=== PATIENT | female | born 1955 | race Caucasian/White ===

== ENCOUNTER 2020-07-23 13:48 | Outpatient (REF) | payer BC, SELFPAY ==
--- NOTE | 2020-07-23 | MM_ITS ---
EXAMINATION: MM SCREENING DIGITAL BREAST TOMOSYNTHESIS, BILATERAL CLINICAL INFORMATION: Screening. Asymptomatic. The lifetime risk of breast cancer based on the Tyrer-Cuzick Model is 10%. COMPARISON: Mammography: 07/06/2019, 04/21/2018 TECHNIQUE: Digital breast tomosynthesis is performed in both the craniocaudal and mediolateral oblique views along with computer-aided detection (CAD). Synthesized 2D images are generated from the tomosynthesis. FINDINGS: The breasts are almost entirely fatty (ACR BI-RADS breast composition Category a). Background stromal and fibroglandular densities are stable. Low axillary tail nodes are stable. There are scattered benign round and rim calcifications again seen in each breast. Small incidental oil cyst again noted anterior upper outer left breast. Neither breast shows interval mass or architectural abnormality or abnormal calcifications. No significant changes. MM/MM tomosynthesis screening BI IMPRESSION: No mammographic evidence of malignancy. ASSESSMENT: BI-RADS 2: Benign RECOMMENDATION: Routine annual mammography screening. This patient's information was entered into a reminder system with a target due date for their next mammogram.
== END 2020-07-23 13:49 | disposition home or self-care (01) ==
LOC: HO.MAMMO 13:48
PROVIDERS: Visit Provider Internal Medicine
DX: Z12.31 Encounter for screening mammogram for malignant neoplasm of breast (principal)
CPT/HCPCS: 77063; 77067

== ENCOUNTER 2021-04-11 12:37 | Outpatient (REF) | payer BC, SELFPAY ==
[2021-04-11 13:08] LABS: Hematocrit 36.5 % (37-47); Hemoglobin 12.4 g/dl (12.0-16.0); Mean Corpuscular Hemoglobin 31.2 pg (27.0-33.0); Mean Corpuscular Volume 91.9 fL (80-98); Mean Platelet Volume 9.1 fL (9.4-12.3); Platelet Count 216 X10*3/uL (160-400); Red Blood Count 3.97 X10*6/uL (4.20-5.50); Red Cell Distribution Width 12.8 % (11.0-16.0); White Blood Count 5.2 X10*3/uL (4.8-10.8)
[2021-04-11 13:18] LABS: Glucose Urine UA NEG (NEG); Leukocyte Esterase Urine 1+ (NEG); Nitrite Urine NEG (NEG); Urine Blood NEG (NEG); Urine Ketones NEG (NEG); Urine Protein NEG (NEG-TRACE)
[2021-04-11 13:21] LABS: Appearance Urine HAZY; Color Urine YELLOW
[2021-04-11 13:34] LABS: Alanine Aminotransferase 17 U/L (0-31); Albumin Level 4.4 g/dL (3.5-5.0); Alkaline Phosphatase 87 U/L (39-117); Anion Gap 14 (12-20); Aspartate Amino Transferase 17 U/L (5-31); Bilirubin Direct 0.2 mg/dL (0.0-0.5); Bilirubin Total 0.5 mg/dL (0.0-1.0); Blood Urea Nitrogen 16 mg/dL (9-16); Calcium 9.4 mg/dL (8.4-10.2); Carbon Dioxide 28 mmol/L (22-29); Chloride 103 mmol/L (96-108); Cholesterol 216 mg/dL; Estimated Glomerular Filt Rate > 60; Glucose Random 105 mg/dL (60-115); HDL Cholesterol 75 mg/dL; LDL Cholesterol Calculated 113 mg/dl; Potassium 4.2 mmol/L (3.3-5.1); Sodium 141 mmol/L (135-145); Triglycerides 140 mg/dL
[2021-04-11 13:55] LABS: Thyroid Stimulating Hormone 0.89 uIU/mL (0.32-4.0)
[2021-04-11 13:56] LABS: Bacteria Urine TRACE /LPF; RBC Urine 0-2 /HPF (0); Renal Epithelial Cells Urine TRACE /LPF; Squamous Epithelial Cell Urine 1+ /LPF
== END 2021-04-11 12:38 | disposition home or self-care (01) ==
LOC: HO.LAB 12:37
PROVIDERS: PCP Internal Medicine; Visit Provider Internal Medicine
DX: I10 Essential (primary) hypertension (principal)
CPT/HCPCS: 36415; 80048; 80061; 80076; 81001; 84443; 85027

== ENCOUNTER 2021-08-04 11:16 | Day surgery (SDC) | payer BC, SELFPAY ==
[2021-07-25 14:49] VITALS: BMI 36.8
--- NOTE | 2021-07-30 08:50 | P.CONAN_ITS ---
Documented by User: Tammy Doty NP 07/30/21 08:51 HPI - Anesthesia Eval Consult details Narrative: 66yo F for Colonoscopy PMFSH Active Problems Active Problems: All Active Problems (Updated 07/25/21 @ 11:58 by Mary Villanueva RN) Screening for colon cancer (Acute) Class 2 severe obesity with body mass index (BMI) of 35 to 39.9 with serious comorbidity (Acute) Allergic rhinitis (Acute) Acquired hypothyroidism (Acute) Past Medical History Medical History (Updated 07/25/21 @ 11:58 by Mary Villanueva RN) Acquired hypothyroidism Allergic rhinitis Class 2 severe obesity with body mass index (BMI) of 35 to 39.9 with serious comorbidity COVID-19 vaccine series completed Family History Family History (Updated 04/07/21 @ 16:50 by DAVID Resendiz) Mother No problems noted. Father No problems noted. Brother No problems noted. Surgical History Surgical History (Updated 04/07/21 @ 16:50 by DAVID Resendiz) History of hand surgery History of rotator cuff surgery Social History Social History (Updated 04/07/21 @ 16:51 by DAVID Resendiz) Housing: House Housing Other:: and condo Alcohol intake: current Alcohol intake frequency: holidays/special occasions only Patient Tobacco Use Status: Never used Tobacco e-Cigarette/Vaping Use: Never Used Use of substances other than those prescribed or required for medical reasons: No Advance Directives: No Advance Directives Information Provided: Yes Advance Directives on File: No service: No Current occupational status: retired Meds Allergies Allergy/AdvReac Type Severity Reaction Status Date / Time No Known Allergies Allergy Verified 04/19/21 14:17 Home Medications Medication Instructions Recorded Confirmed Last Taken Type doxycycline hyclate 100 mg tablet 100 mg PO BID 07/22/20 04/19/21 Unknown History Exam Exam Date and Time: July 30, 2021 0850 Height,Weight and Vital Signs: Height 5 ft 11 in Weight 119.975 kg Pertinent Lab Results Pertinent Lab Results: Laboratory Tests 04/11/21 04/11/21 12:49 12:49 WBC 5.2 Hgb 12.4 Hct 36.5 L Plt Count 216 Sodium 141 Potassium 4.2 Chloride 103 Carbon Dioxide 28 BUN 16 Creatinine 0.85 Assessment and Plan Assessment Anesthesia Assessment: Chart Reviewed Documented by User: Yvette Oliveira MD 08/04/21 12:35 [facility] Past Medical History Medical History (Updated 07/25/21 @ 11:58 by Mary Villanueva RN) Acquired hypothyroidism Allergic rhinitis Class 2 severe obesity with body mass index (BMI) of 35 to 39.9 with serious c omorbidity COVID-19 vaccine series completed Family History Family History (Updated 04/07/21 @ 16:50 by DAVID Resendiz) Mother No problems noted. Father No problems noted. Brother No problems noted. Surgical History Surgical History (Updated 04/07/21 @ 16:50 by DAVID Resendiz) History of hand surgery History of rotator cuff surgery History of Problems with Anesthesia: No Social History Social History (Updated 04/07/21 @ 16:51 by DAVID Resendiz) Housing: House Housing Other:: and condo Alcohol intake: current Alcohol intake frequency: holidays/special occasions only Patient Tobacco Use Status: Never used Tobacco e-Cigarette/Vaping Use: Never Used Use of substances other than those prescribed or required for medical reasons: No Advance Directives: No Advance Directives Information Provided: Yes Advance Directives on File: No service: No Current occupational status: retired Meds Allergies Allergy/AdvReac Type Severity Reaction Status Date / Time No Known Allergies Allergy Verified 04/19/21 14:17 Home Medications Medication Instructions Recorded Confirmed Last Taken Type doxycycline hyclate 100 mg tablet 100 mg PO BID 07/22/20 04/19/21 Unknown History Exam Airway Mallampati Class: III (Small mouth, full neck) TM Dist: >3cm Neck ROM: Full Loose/Missing/Broken Teeth: No Heart: RRR Lungs: CTA Assessment and Plan Assessment Anesthesia Assessment: Anesthesia Plan Discussed Final Anesthetic Review History of Problems with Anesthesia: No NPO: Yes ASA Class: II Final Preanesthetic Review: Meds/Allgs Chart Reviewed, Consent Obtained/Reviewed and Anes Risks/Benef Reviewed Patient Risk: Low Procedure Risk: Intermediate Anesthetic Plan Anesthetic Plan: MAC: Disposition: Standard PACU
[2021-08-04 11:48] VITALS: BP 115/70; PULSE 78; RESP 18; TEMP 36.3; O2SAT 96
[2021-08-04] MEDS: Lactated Ringers 1,000 ML 100 ML IVCONT (12:15)
[2021-08-04 14:02] VITALS: BP 115/70; PULSE 70; RESP 16; TEMP 36.1; O2SAT 99
--- NOTE | 2021-08-04 14:02 | P.BOP_ITS ---
Brief Operative Note Date of Service: 08/04/21 Pre-op diagnosis: Screening Post-op diagnosis: other (Colon polyps) Procedure: Colonoscopy to the cecum and TI with bx/removal of TC polyp, and cold snare polypectomy x 2 at 40cm and at 60cm. Surgeon: Gerson Hernandez Anesthesia: MAC Was an Dumb Waiter Operator used for this Procedure?: No Estimated blood loss (mL): 2.0 Pathology: other (A. Transverse colon polyp B. Polyp at 60cm C. Polyp at 40cm) Condition: stable Disposition: PACU
[2021-08-04 14:15] VITALS: BP 129/75; PULSE 71; RESP 16; TEMP 36.1; O2SAT 97
[2021-08-04 14:23] VITALS: BP 128/80; PULSE 69; RESP 16; TEMP 36.1; O2SAT 97
--- NOTE | 2021-08-04 18:41 | OP_ITS ---
SURGEON: Gerson Hernandez MD INDICATIONS: The patient presents for evaluation of family history of colon cancer and colorectal cancer screening. Full consent has been obtained from her for this, including risks of bleeding and perforation. PREOPERATIVE DIAGNOSIS: POSTOPERATIVE DIAGNOSIS: PROCEDURE PERFORMED: Colonoscopy to cecum and terminal ileum with biopsy and removal of polyp, and cold snare polypectomy x2. ESTIMATED BLOOD LOSS: COMPLICATIONS: ANESTHESIA: Monitored anesthesia care. ASSISTANTS: SPECIMENS: PREOPERATIVE DIAGNOSES: Colorectal cancer screening and family history of colon cancer. POSTOPERATIVE DIAGNOSES: Colorectal cancer screening and family history of colon cancer, colon polyps, diverticulosis, and small internal hemorrhoids. DESCRIPTION OF PROCEDURE: The patient was placed in the left lateral decubitus position. The digital rectal exam revealed no abnormalities. The Olympus video pediatric colonoscope was entered into the rectum and advanced easily to the cecum. Once in the cecum, I did identify normal-appearing cecal pouch with appendiceal orifice and a normal-appearing ileocecal valve. The terminal ileum was cannulated and appeared normal. The scope was withdrawn back in the colon. The entire cecum and ileocecal valve appeared normal. The scope was then slowly withdrawn assessing all mucosal surfaces carefully. Preparation was excellent. In the transverse colon, was a flat approximately 3 or 4 mm polyp, which was biopsied and completely removed with cold biopsy forceps. At 40 cm and at 60 cm, were approximately 6 mm slightly raised and probably adenomatous polyps, which were removed by cold snare polypectomy completely and recovered by suction. The polypectomy sites appeared clean, without any sign of residual polyp nor any significant bleeding. I did not visualize any sign of other polyps, colitis, nor angiodysplasia. There was a mild amount of sigmoid diverticulosis. In the rectum, scope was retroflexed visualizing small internal hemorrhoids, but no other pathology. The rectal mucosa appeared normal. Scope was straightened and withdrawn from the patient. She tolerated the procedure well and was returned to recovery area in stable condition. IMPRESSION: 1. Colon polyps. 2. Diverticulosis. 3. Internal hemorrhoids. PLAN: The results of the pathology will be checked. Even if these are not adenomas, I would recommend a repeat colonoscopy in 5 years for further screening given her family history of colon cancer in her father in his 40s and in 2 paternal uncles. She was advised not to use any aspirin and NSAIDs for 1 week. MD MARIAN Alcaraz/STARR / [id number]
== END 2021-08-04 15:24 | disposition home or self-care (01) ==
PROVIDERS: PCP Internal Medicine; Visit Provider Internal Medicine
PROC: 0DJD8ZZ Inspection of Lower Intestinal Tract, Via Natural or Artificial Opening Endoscopic (ICD-10-PCS; CPT 45378; principal; 2021-08-04 12:30)
DX: Z12.11 Encounter for screening for malignant neoplasm of colon (principal); Z80.0 Family history of malignant neoplasm of digestive organs; D12.3 Benign neoplasm of transverse colon; D12.4 Benign neoplasm of descending colon; D12.5 Benign neoplasm of sigmoid colon; K57.30 Diverticulosis of large intestine without perforation or abscess without bleeding; K64.8 Other hemorrhoids; E03.9 Hypothyroidism, unspecified; J30.9 Allergic rhinitis, unspecified; E66.01 Morbid (severe) obesity due to excess calories; Z68.36 Body mass index [BMI] 36.0-36.9, adult; Z79.899 Other long term (current) drug therapy
CPT/HCPCS: 45385; 45380; 88305; J1200

== ENCOUNTER 2021-08-28 15:42 | Outpatient (REF) | payer BC, SELFPAY ==
--- NOTE | ~2021-08-28 | MM_ITS ---
EXAMINATION: MM SCREENING DIGITAL BREAST TOMOSYNTHESIS, BILATERAL CLINICAL INFORMATION: Screening. Asymptomatic. The lifetime risk of breast cancer based on the Tyrer-Cuzick Model is 11%. COMPARISON: Mammography: 07/23/2020, 07/06/2019, 04/21/2018 TECHNIQUE: Digital breast tomosynthesis is performed in both the craniocaudal and mediolateral oblique views along with computer-aided detection (CAD). Synthesized 2D images are generated from the tomosynthesis. Additional bilateral CC views are provided. FINDINGS: The breasts are almost entirely fatty (ACR BI-RADS breast composition Category a). There are no significant masses, abnormal calcifications, or other abnormalities. Background stromal and fibroglandular densities are stable. Again, there are scattered bilateral round, rim, predominantly dermal calcifications. Bilateral incidental small low axillary tail nodes are stable. No significant changes. MM/MM tomosynthesis screening BI IMPRESSION: No mammographic evidence of malignancy. ASSESSMENT: BI-RADS 2: Benign RECOMMENDATION: Routine annual mammography screening. This patient's information was entered into a reminder system with a target due date for their next mammogram.
== END 2021-08-28 15:43 | disposition home or self-care (01) ==
LOC: HO.MAMMO 15:42
PROVIDERS: PCP Internal Medicine; Visit Provider Internal Medicine
DX: Z12.31 Encounter for screening mammogram for malignant neoplasm of breast (principal)
CPT/HCPCS: 77063; 77067

== ENCOUNTER 2022-09-01 09:14 | Outpatient (REF) | payer MEDICARE, BC, SELFPAY ==
--- NOTE | ~2022-09-01 | MM_ITS ---
EXAMINATION: MM SCREENING DIGITAL BREAST TOMOSYNTHESIS, BILATERAL CLINICAL INFORMATION: Screening. Asymptomatic. The lifetime risk of breast cancer based on the Tyrer-Cuzick Model is 10.4%. COMPARISON: Mammography: August 28, 2021 and studies dating back to May 07, 2015 TECHNIQUE: Digital breast tomosynthesis is performed in both the craniocaudal and mediolateral oblique views along with computer-aided detection (CAD). Synthesized 2D images are generated from the tomosynthesis. FINDINGS: The breasts are almost entirely fatty (ACR BI-RADS breast composition Category a). There are no significant masses, abnormal calcifications, or other abnormalities. MM/MM tomosynthesis screening BI IMPRESSION: No significant changes from prior exam. ASSESSMENT: BI-RADS 1: Negative RECOMMENDATION: Routine annual mammography screening. This patient's information was entered into a reminder system with a target due date for their next mammogram.
[2022-09-01 10:23] LABS: Hematocrit 39.8 % (37.0-47.0); Mean Corpuscular HGB Conc 32.7 g/dl (31.0-35.0); Mean Corpuscular Hemoglobin 30.2 pg (27.0-33.0); Mean Corpuscular Volume 92.3 fL (80.0-98.0); Mean Platelet Volume 9.6 fL (9.4-12.3); Platelet Count 250 X10*3/uL (160-400); Red Blood Count 4.31 X10*6/uL (4.20-5.50); Red Cell Distribution Width 12.9 % (11.0-16.0); White Blood Count 5.4 X10*3/uL (4.8-10.8)
[2022-09-01 11:29] LABS: Alanine Aminotransferase 21 U/L (0-31); Albumin Level 4.6 g/dL (3.5-5.0); Alkaline Phosphatase 79 U/L (39-117); Anion Gap 12 (12-20); Aspartate Amino Transferase 16 U/L (5-31); Bilirubin Direct 0.2 mg/dL (0.0-0.5); Bilirubin Total 0.5 mg/dL (0.0-1.0); Blood Urea Nitrogen 21 mg/dL (9-16); Calcium 9.2 mg/dL (8.4-10.2); Carbon Dioxide 27 mmol/L (22-29); Chloride 105 mmol/L (96-108); Cholesterol 217 mg/dL; Estimated Glomerular Filt Rate > 60; Glucose Random 103 mg/dL (60-115); HDL Cholesterol 75 mg/dL; LDL Cholesterol Calculated 119 mg/dl; Potassium 4.1 mmol/L (3.3-5.1); Sodium 140 mmol/L (135-145); Thyroid Stimulating Hormone 1.59 uIU/mL (0.32-4.0); Total Protein 7.1 g/dL (6.5-8.0); Triglycerides 116 mg/dL
== END 2022-09-01 09:15 | disposition home or self-care (01) ==
LOC: HO.MAMMO 09:14
PROVIDERS: PCP Internal Medicine; Visit Provider Internal Medicine
DX: Z12.31 Encounter for screening mammogram for malignant neoplasm of breast (principal); E03.9 Hypothyroidism, unspecified; E66.01 Morbid (severe) obesity due to excess calories; J30.9 Allergic rhinitis, unspecified
CPT/HCPCS: 36415; 77063; 77067; 80048; 80061; 80076; 84443; 85027

== ENCOUNTER 2023-09-09 14:09 | Outpatient (REF) | payer MEDICARE, BC, SELFPAY | END 2023-09-09 14:10 | disposition home or self-care (01) | LOC: HO.MAMMO 14:09 | PROVIDERS: PCP Internal Medicine; Visit Provider Internal Medicine | DX: Z12.31 Encounter for screening mammogram for malignant neoplasm of breast (principal) | CPT/HCPCS: 77063; 77067 ==

== ENCOUNTER → 2023-09-09 14:15 | Outpatient (BNV) | payer MEDICARE, BC, SELFPAY | PROVIDERS: PCP Internal Medicine; Visit Provider Radiology Diagnostic Radiology | DX: Z12.31 Encounter for screening mammogram for malignant neoplasm of breast (principal) | CPT/HCPCS: 77063; 77067 ==

== ENCOUNTER 2023-10-21 13:49 | Outpatient (AMB) | payer MEDICARE, BC, SELFPAY ==
--- NOTE | 2023-10-21 13:52 | MHC.PC.OV ---
Vital Signs 10/21/23 13:54 Height 5 ft 10 in Weight 249 lb 6 oz BMI 35.8 BP 122/70 Blood Pressure Location Lt brachial Position Sitting Pulse 58 Pulse Source Pulse Oximeter Pulse Oximetry (%) 97 Oxygen Delivery Method Room Air Intake Visit Reasons: Med review Intake Note: Patient is here today for medication review Director Of Regulatory Affairs Required: No Head Batcher: Not Required per policy Accompanied by: Self / Same As Patient Allergies No Known Allergies Allergy (Verified 10/21/23 14:16) Medication List - Last Reconciled 10/21/23 by Richard Amin MD levothyroxine 125 mcg PO DAILY montelukast 10 mg PO DAILY nystatin-triamcinolone 100,000-0.1 unit/g-% 1 appl topical DAILY Tobacco use date assessed: 10/21/23 Fall risk assessment: No Falls in past year Last assessed Fall Risk: 10/21/23 Dental Screening Dental Screen Date: 10/21/23 Did you have a dental visit in the last 12 months?: Yes Did you have a dental problem in the last 6 months where you did not have access to dental care?: No Was dental information given to patient?: Patient has dentist HPI Med review HPI Details 68-year-old female presents to the office to discuss her chronic medical conditions. Patient is reporting that she joined weight [employer] and has lost weight. Since last office visit she had a colonoscopy. Able to function and do all activities of daily living. [facility] Medical History COVID-19 vaccine series completed Class 2 severe obesity with body mass index (BMI) of 35 to 39.9 with serious comorbidity Allergic rhinitis Acquired hypothyroidism Surgical History History of hand surgery History of rotator cuff surgery Family History Mother No problems noted. Father No problems noted. Brother No problems noted. Social History Housing: House Housing Other:: and condo Alcohol intake: current Alcohol intake frequency: holidays/special occasions only Patient Tobacco Use Status: Never used Tobacco e-Cigarette/Vaping Use: Never Used Second Hand Smoke Exposure: No service: No Current occupational status: retired Cognitive needs: No Hearing needs: No Vision needs: No Questionnaire PHQ-9 Over the last 2 weeks, how often have you been bothered by any of the following problems? 1. Little interest or pleasure in doing things: not at all 2. Feeling down, depressed, or hopeless: not at all 3. Trouble falling or staying asleep, or sleeping too much: not at all 4. Feeling tired or having little energy: not at all 5. Poor appetite or overeating: not at all 6. Feeling bad about yourself - or that you are a failure or have let yourself or your family down: not at all 7. Trouble concentrating on things, such as reading the newspaper or watching television: not at all 8. Moving or speaking so slowly that other people could have noticed. Or the opposite - being so fidgety or restless that you have been moving around a lot more than usual: not at all 9. Thoughts that you would be better off or of hurting yourself in some way: not at all Total score: 0 Depression Screening Interpretation: Negative Depression Screening Done: Yes Source: Developed by Drs. Gerson Sabillon, Hailee Spencer, Jeffy Loco and colleagues, with an educational melani from [employer]. Thrive Questionnaire Date Thrive assessed: 10/21/23 I am a: Patient What is your living situation today?: I have a steady place to live Within the past 12 months, did the food you bought not last and you didn't have the money to get more?: Never true Within the past 12 months, did you worry whether your food would run out before you got money to buy more?: Never true Do you have trouble paying for medicines?: No Do you have trouble getting transportation to medical appointments?: No Do you have trouble paying your heating and electricity bill?: No Do you have trouble taking care of your child, family member or friend?: No Do you have trouble with day-to-day activities such as bathing, preparing meals, shopping, managing finances, etc.?: No Are you currently unemployed and looking for a job?: No Are you interested in more education?: No Currently or been in a relationship where the following occur: no concerns reported THRIVE Score: 0 AUDIT C Alcohol Use Questionnaire (AUDIT-C) 1. How often do you have a drink containing alcohol?: Monthly or less 2. How many drinks containing alcohol do you have on a typical day when you are drinking?: 1 or 2 Total Score: 1 JESSICA-7 AMB Questionnaire JESSICA-7 Date JESSICA - 7 assessed: 10/21/23 Feeling nervous, anxious, or on edge: 0 = Not at all Not being able to stop or control worryin = Not at all Worrying too much about different things: 0 = Not at all Trouble relaxin = Not at all Being so restless that it is hard to sit still: 0 = Not at all Becoming easily annoyed or irritable: 0 = Not at all Feeling afraid as if something awful might happen: 0 = Not at all Total JESSICA-7 score (0-4 normal; 5-9 mild; 10-14 moderate; 15-21 severe): 0 Source: Developed by Drs. Gerson Sabillon, Hailee Spencer, Jeffy Loco and colleagues, with an educational melani from [employer]. Physical exam (Primary Care) Vital Signs: Last Vital Signs Pulse 58 10/21/23 13:54 BP 122/70 10/21/23 13:54 Pulse Ox 97 10/21/23 13:54 Oxygen Delivery Method Room Air 10/21/23 13:54 Care Plan Goal for BP management: Blood pressure is in range. BMI result Body Mass Index 35.8 BMI Assessment/Plan discussion: High (Continue weight watchers program.) BMI High, discussed plan: lifestyle, weight reduction, dietary and physical activity Tobacco/Smoking Status: Tobacco use Status Tobacco use date assessed 10/21/23 10/21/23 14:01 Patient Tobacco Use Status Never used Tobacco 10/21/23 14:01 e-Cigarette/Vaping Use Never Used 10/21/23 14:01 PHQ-9: PHQ-9 Score PHQ-9: Total score 0 10/21/23 14:01 Depression Screening Interpretation: Negative Thrive Assessment: Date of Thrive Assessment Date Thrive assessed 10/21/23 10/21/23 14:01 Currently or been in a relationship where the following occur: no concerns reported Const General: cooperative and healthy appearing Nutritional Appearance: well nourished Orientation/consciousness: patient oriented x3 Limitations: no limitations HENMT Head: Yes normal to inspection Eyes General: appearance normal, both eyes and all related structures Neck Neck: Yes normal visual inspection Chest Chest palpation & inspection: normal palpation of entire chest wall Resp Effort & Inspection: normal respiratory effort Neuro General: patient oriented x3 Assessment and Plan Assessment & Plan (1) Class 2 severe obesity with body mass index (BMI) of 35 to 39.9 with serious comorbidity: Code(s): E66.01 - Morbid (severe) obesity due to excess calories Plan: Continue weight watchers program. (2) Allergic rhinitis: Code(s): J30.9 - Allergic rhinitis, unspecified Plan: Singulair prescribed. Continue current medications. (3) Acquired hypothyroidism: Code(s): E03.9 - Hypothyroidism, unspecified Plan: TSH ordered. Will call with the results. Medications: New nystatin-triamcinolone 100,000-0.1 unit/g-% 1 appl topical DAILY 60 grams 1RF Refilled montelukast 10 mg PO DAILY 90 tabs 1RF levothyroxine take one tab on empty stomach in the morning 125 mcg PO DAILY 90 tabs 1RF Coding Level of Care Code Est Pt Level 4 (03876) Diagnoses Class 2 severe obesity with body mass index (BMI) of 35 to 39.9 with serious comorbidity E66.01 Allergic rhinitis J30.9 Acquired hypothyroidism E03.9
[2023-10-21 13:54] VITALS: BP 122/70; PULSE 58; O2SAT 97; BMI 35.8
== END 2023-10-21 14:18 | disposition home or self-care (01) ==
PROVIDERS: PCP Internal Medicine; Visit Provider Internal Medicine
DX: J30.9 Allergic rhinitis, unspecified (principal); E66.01 Morbid (severe) obesity due to excess calories; E03.9 Hypothyroidism, unspecified; Z68.35 Body mass index [BMI] 35.0-35.9, adult
CPT/HCPCS: 99214

== ENCOUNTER 2023-11-05 10:47 | Outpatient (AMB) | payer MEDICARE, BC, SELFPAY ==
--- NOTE | 2023-11-05 12:08 | AM.OFFWIN_ITS ---
Intake Vital Signs 11/05/23 12:10 Weight 246 lb BP 122/80 Blood Pressure Location Lt brachial Position Sitting Pulse 87 Pulse Source Pulse Oximeter Pulse Oximetry (%) 97 Oxygen Delivery Method Room Air Intake Visit Reasons: EST/left eye irritation ([phone]) Intake Note: Patient here for left eye swelling and discharge which started yesterday.She wanted to mention she has a cataract lens in that eye. Patient Tobacco Use Status: Never used Tobacco Allergies No Known Allergies Allergy (Verified 11/05/23 12:11) Do you need a note to return to daycare/school/sports/work: No HPI HPI Comments History of Present Illness Details 68 y/o female patient [facility] with c/o left eye swelling, redness and discharge since yesterday. Pt also c/o sinus pressure, congestion and cough since Wednesday. [facility] Medical History COVID-19 vaccine series completed Class 2 severe obesity with body mass index (BMI) of 35 to 39.9 with serious comorbidity Allergic rhinitis Acquired hypothyroidism Surgical History History of hand surgery History of rotator cuff surgery Family History Mother No problems noted. Father No problems noted. Brother No problems noted. Social History Housing: House Housing Other:: and condo Alcohol intake: current Alcohol intake frequency: holidays/special occasions only Patient Tobacco Use Status: Never used Tobacco e-Cigarette/Vaping Use: Never Used Second Hand Smoke Exposure: No service: No Current occupational status: retired Cognitive needs: No Hearing needs: No Vision needs: No Review of Systems Const All systems reviewed & are unremarkable except as noted in HPI and below Physical Exam Vital Signs: Last Vital Signs Pulse 87 11/05/23 12:10 BP 122/80 11/05/23 12:10 Pulse Ox 97 11/05/23 12:10 Oxygen Delivery Method Room Air 11/05/23 12:10 Const General: comfortable and no acute distress Nutritional Appearance: obese Orientation/consciousness: patient oriented x3 HEENT Head: Yes normocephalic Ears: external ears normal and TM's normal bilaterally General nose exam: Normal nasal mucous membranes and turbinates present Face and sinus: Yes sinus tenderness Mouth: moist mucous membranes Throat: Yes posterior oropharynx normal Eyes Other: Left eye lid swollen, pink conjunctiva, diffused and yellow crusty discharge. Conjunctivae: conjunctival abnormal right conjunctival injection and discharge p urulent Pupils: Equal, round and reactive pupils present EOM: EOMs intact bilaterally Resp Effort & Inspection: normal respiratory effort and able to speak in complete sentences Auscultation: clear to auscultation bilaterally, no crackles, no rales, no rhonchi and no wheezes Cardio Rate: regular rate Rhythm: regular rhythm Neuro General: patient oriented x3 Cranial nerves: Yes Equal, round and reactive pupils present Assessment & Plan Assessment & Plan (1) Bacterial conjunctivitis: Code(s): H10.9 - Unspecified conjunctivitis Plan: - Keep eyes clean - OTC remedies - Acetaminophen for pain relief (2) Cough in adult: Code(s): R05.9 - Cough, unspecified Plan: - Keep eyes clean - OTC remedies - Acetaminophen for pain relief (3) Upper respiratory infection: Code(s): J06.9 - Acute upper respiratory infection, unspecified Qualifiers: URI type: acute nasopharyngitis (common cold) Qualified Code(s): J00 - Acute nasopharyngitis [common cold] Plan: - Keep eyes clean - OTC remedies - Acetaminophen for pain relief Medications: New [id number] 6.25-5-10 mg/5 mL (Promethazine VC-Codeine) 5 mL PO Q4-6H PRN 473 mL 0RF flu symptoms R05.9 - Cough, unspecified amoxicillin 500 mg PO BID 7 days 14 caps 0RF J00 - Acute nasopharyngitis [common cold], R05.9 - Cough, unspecified erythromycin 1 appl ophthalmic (eye) DAILY 3.5 grams 0RF H10.9 - Unspecified conjunctivitis Coding Level of Care Code Est Pt Level 3 (46365) Diagnoses Bacterial conjunctivitis H10.9 Cough in adult R05.9 Acute nasopharyngitis J00 URI type: acute nasopharyngitis (common cold) Time Spent (min) 15
[2023-11-05 12:10] VITALS: BP 122/80; PULSE 87; O2SAT 97
== END 2023-11-05 16:20 | disposition home or self-care (01) ==
PROVIDERS: PCP Internal Medicine; Visit Provider Nurse Practitioner Family
DX: H10.9 Unspecified conjunctivitis (principal); R05.9 Cough, unspecified; J00 Acute nasopharyngitis [common cold]
CPT/HCPCS: 99213

== ENCOUNTER 2023-11-10 10:46 | Outpatient (REF) | payer MEDICARE, BC, SELFPAY ==
[2023-11-10 11:38] LABS: Hematocrit 38.6 % (37.0-47.0); Mean Corpuscular HGB Conc 33.7 g/dl (31.0-35.0); Mean Corpuscular Hemoglobin 30.9 pg (27.0-33.0); Mean Corpuscular Volume 91.7 fL (80.0-98.0); Mean Platelet Volume 9.3 fL (9.4-12.3); Platelet Count 265 X10*3/uL (160-400); Red Blood Count 4.21 X10*6/uL (4.20-5.50); Red Cell Distribution Width 12.4 % (11.0-16.0); White Blood Count 5.6 X10*3/uL (4.8-10.8)
[2023-11-10 13:40] LABS: Alanine Aminotransferase 15 U/L (0-31); Albumin Level 4.3 g/dL (3.5-5.0); Alkaline Phosphatase 78 U/L (39-117); Anion Gap 10 (12-20); Aspartate Amino Transferase 13 U/L (5-31); Bilirubin Direct 0.1 mg/dL (0.0-0.5); Bilirubin Total 0.3 mg/dL (0.0-1.0); Blood Urea Nitrogen 15 mg/dL (9-16); Calcium 9.4 mg/dL (8.4-10.2); Carbon Dioxide 30 mmol/L (22-29); Chloride 107 mmol/L (96-108); Cholesterol 183 mg/dL (<200); Estimated Glomerular Filt Rate > 60; Glucose Random 95 mg/dL (60-115); HDL Cholesterol 48 mg/dL (>40); LDL Cholesterol Calculated 114 mg/dL (<100); Potassium 4.1 mmol/L (3.3-5.1); Sodium 143 mmol/L (135-145); Total Protein 7.2 g/dL (6.5-8.0); Triglycerides 105 mg/dL (<150)
== END 2023-11-10 10:47 | disposition home or self-care (01) ==
LOC: HO.LAB 10:46
PROVIDERS: PCP Internal Medicine; Visit Provider Internal Medicine
DX: E66.01 Morbid (severe) obesity due to excess calories (principal); E03.9 Hypothyroidism, unspecified; J30.9 Allergic rhinitis, unspecified
CPT/HCPCS: 36415; 80048; 80061; 80076; 84443; 85027

== ENCOUNTER 2023-12-24 13:56 | Outpatient (REF) | payer MEDICARE, BC, SELFPAY ==
[2023-12-24 17:03] LABS: Thyroid Stimulating Hormone 0.06 uIU/mL (0.32-4.0)
== END 2023-12-24 13:57 | disposition home or self-care (01) ==
LOC: HO.LAB 13:56
PROVIDERS: PCP Internal Medicine; Visit Provider Internal Medicine
DX: E03.9 Hypothyroidism, unspecified (principal)
CPT/HCPCS: 36415; 84443

== ENCOUNTER 2024-01-04 08:08 | Outpatient (AMB) | payer MEDICARE, BC, SELFPAY ==
[2024-01-04 08:10] VITALS: BP 134/70; PULSE 80; O2SAT 98; BMI 35.2
--- NOTE | 2024-01-04 08:10 | MHC.PC.OV ---
Vital Signs 01/04/24 08:10 Height 5 ft 10 in Weight 245 lb BMI 35.2 BP 134/70 Blood Pressure Location Lt brachial Position Standing Pulse 80 Pulse Source Pulse Oximeter Pulse Oximetry (%) 98 Oxygen Delivery Method Room Air Intake Visit Reasons: Med Review Allergies No Known Allergies Allergy (Verified 01/04/24 08:56) Medication List - Last Reconciled 01/04/24 by Richard Amin MD levothyroxine 125 mcg PO DAILY montelukast 10 mg PO DAILY nystatin-triamcinolone 100,000-0.1 unit/g-% 1 appl topical DAILY Tobacco use date assessed: 10/21/23 Fall risk assessment: No Falls in past year Last assessed Fall Risk: 01/04/24 Dental Screening Dental Screen Date: 01/04/24 Did you have a dental visit in the last 12 months?: Yes Did you have a dental problem in the last 6 months where you did not have access to dental care?: No Was dental information given to patient?: Patient has dentist HPI Med Review HPI Details 68-year-old female presents to the office to discuss her chronic medical conditions. Patient is concerned about her fluctuating thyroid levels. Her thyroid medication was increased to 150 mcg per day and patient has not tolerated the medication well. She felt very anxious. In addition she came down with bad conjunctivitis and upper respiratory tract infection. The symptoms are slowly improving. She is slowly resumed her daily activities. [facility] Medical History COVID-19 vaccine series completed Class 2 severe obesity with body mass index (BMI) of 35 to 39.9 with serious comorbidity Allergic rhinitis Acquired hypothyroidism Surgical History History of hand surgery History of rotator cuff surgery Family History Mother No problems noted. Father No problems noted. Brother No problems noted. Social History Housing: House Housing Other:: and condo Alcohol intake: current Alcohol intake frequency: holidays/special occasions only Patient Tobacco Use Status: Never used Tobacco e-Cigarette/Vaping Use: Never Used Second Hand Smoke Exposure: No service: No Current occupational status: retired Cognitive needs: No Hearing needs: No Vision needs: No Questionnaire PHQ-9 Over the last 2 weeks, how often have you been bothered by any of the following problems? 1. Little interest or pleasure in doing things: not at all 2. Feeling down, depressed, or hopeless: not at all 3. Trouble falling or staying asleep, or sleeping too much: not at all 4. Feeling tired or having little energy: not at all 5. Poor appetite or overeating: not at all 6. Feeling bad about yourself - or that you are a failure or have let yourself or your family down: not at all 7. Trouble concentrating on things, such as reading the newspaper or watching television: not at all 8. Moving or speaking so slowly that other people could have noticed. Or the opposite - being so fidgety or restless that you have been moving around a lot more than usual: not at all 9. Thoughts that you would be better off or of hurting yourself in some way: not at all Total score: 0 Depression Screening Interpretation: Negative Depression Screening Done: Yes Source: Developed by Drs. Gerson Sabillon, Hailee Spencer, Jeffy Loco and colleagues, with an educational melani from [employer]. Thrive Questionnaire Date Thrive assessed: 10/21/23 AUDIT C Alcohol Use Questionnaire (AUDIT-C) 1. How often do you have a drink containing alcohol?: Monthly or less 2. How many drinks containing alcohol do you have on a typical day when you are drinking?: 1 or 2 Total Score: 1 JESSICA-7 AMB Questionnaire JESSICA-7 Date JESSICA - 7 assessed: 10/21/23 Source: Developed by Hailee Paula Kurt Kroenke and colleagues, with an educational melani from [employer]. Physical exam (Primary Care) Vital Signs: Last Vital Signs Pulse 80 01/04/24 08:10 BP 134/70 01/04/24 08:10 Pulse Ox 98 01/04/24 08:10 Oxygen Delivery Method Room Air 01/04/24 08:10 Care Plan Goal for BP management: Blood pressure is in range. BMI result Body Mass Index 35.2 BMI Assessment/Plan discussion: High Tobacco/Smoking Status: Tobacco use Status Tobacco use date assessed 10/21/23 01/04/24 08:13 Patient Tobacco Use Status Never used Tobacco 01/04/24 08:13 e-Cigarette/Vaping Use Never Used 01/04/24 08:13 PHQ-9: PHQ-9 Score PHQ-9: Total score 0 01/04/24 08:15 Depression Screening Interpretation: Negative Thrive Assessment: Date of Thrive Assessment Date Thrive assessed 10/21/23 01/04/24 08:13 Const General: cooperative and healthy appearing Nutritional Appearance: well nourished Orientation/consciousness: patient oriented x3 Limitations: no limitations HENMT Head: Yes normal to inspection Eyes General: appearance normal, both eyes and all related structures Neck Neck: Yes normal visual inspection Chest Chest palpation & inspection: normal palpation of entire chest wall Resp Effort & Inspection: normal respiratory effort Neuro General: patient oriented x3 Assessment and Plan Assessment & Plan (1) Acquired hypothyroidism: Code(s): E03.9 - Hypothyroidism, unspecified Plan: Synthroid dosage has been reduced to 125 mcg a day. TSH will be checked at 6 week interval. Orders: Orders Thyroid Stimulating Hormone 02/08/24 E03.9 - Hypothyroidism, unspecified Coding Level of Care Code Est Pt Level 3 (15867) Diagnoses Acquired hypothyroidism E03.9
== END 2024-01-04 08:57 | disposition home or self-care (01) ==
PROVIDERS: PCP Internal Medicine; Visit Provider Internal Medicine
DX: E03.9 Hypothyroidism, unspecified (principal)
CPT/HCPCS: 99213

== ENCOUNTER 2024-02-10 12:07 | Outpatient (REF) | payer MEDICARE, BC, SELFPAY ==
[2024-02-10 13:28] LABS: T4 Thyroxine 9.8 ug/dL (4.5-12.0); Thyroid Stimulating Hormone 0.25 uIU/mL (0.32-4.0)
[2024-02-11 19:44] LABS: Triiodothyronine T3 Total 96 ng/dL (76-181)
== END 2024-02-10 12:08 | disposition home or self-care (01) ==
LOC: HO.LAB 12:07
PROVIDERS: PCP Internal Medicine; Visit Provider Internal Medicine
DX: E03.9 Hypothyroidism, unspecified (principal)
CPT/HCPCS: 36415; 84436; 84443; 84480

== ENCOUNTER 2024-04-06 09:09 | Outpatient (AMB) | payer MEDICARE, BC, SELFPAY ==
[2024-04-06 09:10] VITALS: BP 130/78; PULSE 76; O2SAT 96; BMI 35.4
--- NOTE | 2024-04-06 09:10 | MHC.PC.OV ---
Vital Signs 04/06/24 09:10 Height 5 ft 10 in Weight 247 lb 0.5 oz BMI 35.4 BP 130/78 Blood Pressure Location Lt brachial Position Sitting Pulse 76 Pulse Source Pulse Oximeter Pulse Oximetry (%) 96 Oxygen Delivery Method Room Air Intake Visit Reasons: 3 Month F/U Food Products Sales Representative Required: No Allergies No Known Allergies Allergy (Verified 04/06/24 09:11) Tobacco use date assessed: 10/21/23 Fall risk assessment: No Falls in past year Last assessed Fall Risk: 04/06/24 Dental Screening Dental Screen Date: 01/04/24 HPI 3 Month F/U HPI Details 68-year-old female presents to the office to discuss her chronic medical conditions. Patient is compliant with her thyroid medications. She would like to understand if the thyroid medications need to be adjusted further. Able to function and do activities of daily living. Patient recently purchased a new home. Following a reasonable diet. Exercises infrequently. [facility] Medical History COVID-19 vaccine series completed Class 2 severe obesity with body mass index (BMI) of 35 to 39.9 with serious comorbidity Allergic rhinitis Acquired hypothyroidism Surgical History History of hand surgery History of rotator cuff surgery Family History Mother No problems noted. Father No problems noted. Brother No problems noted. Social History Housing: House Housing Other:: and condo Alcohol intake: current Alcohol intake frequency: holidays/special occasions only Patient Tobacco Use Status: Never used Tobacco e-Cigarette/Vaping Use: Never Used Second Hand Smoke Exposure: No service: No Current occupational status: retired Cognitive needs: No Hearing needs: No Vision needs: No Questionnaire Thrive Questionnaire Date Thrive assessed: 10/21/23 AUDIT C Alcohol Use Questionnaire (AUDIT-C) 1. How often do you have a drink containing alcohol?: Monthly or less 2. How many drinks containing alcohol do you have on a typical day when you are drinking?: 1 or 2 Total Score: 1 JESSICA-7 AMB Questionnaire JESSICA-7 Date JESSICA - 7 assessed: 10/21/23 Source: Developed by DrsAdrián Sabillon, Hailee Spencer, Jeffy Loco and colleagues, with an educational melani from [employer]. Physical exam (Primary Care) Vital Signs: Last Vital Signs Pulse 76 04/06/24 09:10 BP 130/78 04/06/24 09:10 Pulse Ox 96 04/06/24 09:10 Oxygen Delivery Method Room Air 04/06/24 09:10 Care Plan Goal for BP management: Blood pressure is in range. BMI result Body Mass Index 35.4 BMI Assessment/Plan discussion: High (1 lb per week weight loss suggested.) BMI High, discussed plan: lifestyle, weight reduction, dietary and physical activity Tobacco/Smoking Status: Tobacco use Status Tobacco use date assessed 10/21/23 04/06/24 09:11 Patient Tobacco Use Status Never used Tobacco 04/06/24 09:11 e-Cigarette/Vaping Use Never Used 04/06/24 09:11 Thrive Assessment: Date of Thrive Assessment Date Thrive assessed 10/21/23 04/06/24 09:11 Const General: cooperative and healthy appearing Nutritional Appearance: well nourished Orientation/consciousness: patient oriented x3 Limitations: no limitations HENMT Head: Yes normal to inspection Eyes General: appearance normal, both eyes and all related structures Neck Neck: Yes normal visual inspection Chest Chest palpation & inspection: normal palpation of entire chest wall Resp Effort & Inspection: normal respiratory effort Neuro General: patient oriented x3 Assessment and Plan Assessment & Plan (1) Acquired hypothyroidism: Code(s): E03.9 - Hypothyroidism, unspecified (2) Class 2 severe obesity with body mass index (BMI) of 35 to 39.9 with serious comorbidity: Code(s): E66.01 - Morbid (severe) obesity due to excess calories Plan: Counseling on the importance of diet and exercise done. Plan 20 minutes spent reviewing the condition. Synthroid was continued at the same dosage. TSH to be repeated in 3 months Orders: Orders Thyroid Stimulating Hormone 04/06/24 E03.9 - Hypothyroidism, unspecified Medications: Refilled levothyroxine (Synthroid) 125 mcg PO DAILY 90 tabs 1RF Coding Level of Care Code Est Pt Level 4 (53562) Complex EM visit Add On G2211 Diagnoses Acquired hypothyroidism E03.9 Class 2 severe obesity with body mass index (BMI) of 35 to 39.9 with serious comorbidity E66.01
== END 2024-04-06 09:45 | disposition home or self-care (01) ==
PROVIDERS: PCP Internal Medicine; Visit Provider Internal Medicine
DX: E03.9 Hypothyroidism, unspecified (principal); E66.01 Morbid (severe) obesity due to excess calories; Z68.35 Body mass index [BMI] 35.0-35.9, adult
CPT/HCPCS: 99214; G2211

== ENCOUNTER 2024-07-24 11:45 | Outpatient (REF) | payer MEDICARE, BC, SELFPAY | END 2024-07-24 11:46 | disposition home or self-care (01) | LOC: HO.LAB 11:45 | PROVIDERS: PCP Internal Medicine; Visit Provider Internal Medicine | DX: E03.9 Hypothyroidism, unspecified (principal) | CPT/HCPCS: 36415; 84443 ==

== ENCOUNTER 2024-08-17 13:04 | Outpatient (REF) | payer MEDICARE, BC, SELFPAY ==
--- OUTSIDE RECORDS SUMMARY | 2024-08-17 13:09 | XMS_ITS ---
Author Name [facility] Organization Unknown History of Medication Use Medication Directions Dispensed Refills Start Date End Date Stat us montelukast (Singulair) 10 MG tablet Take 1 tablet (10 mg) by mouth daily. 07/14/2023 active levothyroxine (Synthroid) 100 MCG/5ML solution Take 1 tablet by mouth daily. 07/14/2023 active doxycycline (Oracea) [address] capsule Take one pill with dinner 07/14/2023 active Problems Problem Status Onset Date Problem Type Date of Resoluti on Source Severe myopia of both eyes active 2022-01-22 ProblemAct ENS_MFA Combined forms of age-related cataract of right eye active EncounterDiagnosisAct ENS_MF A PVD (posterior vitreous detachment), both eyes active 2022-01-22 ProblemAct ENS_MFA Epiretinal membrane (ERM) of left eye active 2022-01-22 ProblemAct ENS_MFA Cataract, nuclear sclerotic, both eyes active 2022-01-22 ProblemAct ENS_MFA
--- OUTSIDE RECORDS SUMMARY | 2024-08-17 13:09 | XMS_ITS | Patient Health Record ---
Author Organization [facility] Address [address] [place] [address] Care Team Providers Care Histotechnician Name Role Phone CHERISE AYON Primary Care Provider Gerson Schneider Unavailable [phone] ALLERGIES No Known Allergies REASON FOR REFERRAL No Information MEDICATIONS Medication SIG (Take, Route, Frequency, Duration) Notes Start Date End Date Status Levothyroxine Sodium 125 MCG 1 tablet in the morning on an empty stomach Orally Once a day for 30 day(s) Active Singulair 10 MG 1 tablet Orally Once a day for 30 day(s) Active IMMUNIZATIONS Vaccine Route Administration Date Status Comme nts Influenza Unknown 07/08/2021 Administered SOCIAL HISTORY Tobacco Use: Social History Observation Description Date Details (start date - stop date) Never Smoker NA - NA Sex Assigned At : Social History Observation Description Sex Assigned At Unknown Tobacco Use/Smoking Question Answer Notes Patient is a nonsmoker Alcohol Screen Question Answer Notes Did you have a drink contain ing alcohol in the past year? Yes How often did you have a dri nk containing alcohol in the past year? 2 to 3 times a week (3 points) How many drinks did you have on a typical day when you were drinking in the past year? 1 or 2 drinks (0 point) How often did you have 6 or more drinks on one occasion in the past year? Never (0 point) Points 3 Interpretation Positive PROBLEMS Problem Type ICD Code Onset Dates Problem Status W/U Status Risk SNOMED Code Notes Problem Family history of colorectal cancer (Z80.0) Active confirmed 5734415486438 Problem Encounter for screening for malignant neoplasm of colon (Z12.11) Active confirmed 633447047 Problem Preprocedural examination (Z01.818) Active confirmed 456423529219541 Problem Diverticulosis of large intestine without perforation or abscess without bleeding (K57.30) Active confirmed Diverticul ar disease of colon (225890213) PLAN OF TREATMENT Pending Test Test Name Order Date Pathology 08/04/2021 Future Test Test Name Order Date COLONOSCOPY 07/15/2021 Insurance Providers Payer Name Payer Address Payer Phone Subscriber Number Group Number Insured Name Patient Relationship to Insured Coverage Start Date Coverage End Date [facility] [address] [place], [place] [id number] [phone] [id number] JULIANNE ROQUE Self - patient is the insured MEDICAL (GENERAL) HISTORY Medical History History ICD Code Seasonal allergies Denies [place],DM,CVA,Lung disease,renal dise ase Acne rosacea She describes 4 previous col onoscopies at age 37, 42, 47, and 54. She reported these were all negative other than a hyperplastic polyp removed at the most recent colonoscopy in 2011. 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 rotator cuff surgery
[2024-08-17 14:33] LABS: Free T4 (Free Thyroxine) 1.18 ng/dL (0.71-1.85)
[2024-08-18 15:38] LABS: Triiodothyronine T3 Free 2.8 pg/mL (2.3-4.2)
== END 2024-08-17 13:05 | disposition home or self-care (01) ==
LOC: HO.LAB 13:04
PROVIDERS: PCP Internal Medicine; Visit Provider Internal Medicine
DX: E03.9 Hypothyroidism, unspecified (principal)
CPT/HCPCS: 36415; 84439; 84481

== ENCOUNTER 2024-08-24 13:55 | Outpatient (AMB) | payer MEDICARE, BC, SELFPAY ==
--- NOTE | 2024-08-24 13:58 | MHC.PC.OV ---
Vital Signs 08/24/24 13:59 Height 5 ft 10 in Weight 255 lb 8 oz BMI 36.7 BP 130/70 Blood Pressure Location Lt brachial Position Sitting Pulse 80 Pulse Source Pulse Oximeter Pulse Oximetry (%) 97 Oxygen Delivery Method Room Air Intake Visit Reasons: Follow Up Intake Note: Patient is here to follow up on OA, Hypothyroidism. Medicaid Collection Specialist Required: No Quality Consultant: Not Required per policy Accompanied by: Self / Same As Patient Allergies No Known Allergies Allergy (Verified 08/24/24 14:57) Medication List - Last Reconciled 08/24/24 by Richard Amin MD levothyroxine 112 mcg PO DAILY montelukast 10 mg PO DAILY nystatin-triamcinolone 100,000-0.1 unit/g-% 1 appl topical DAILY Tobacco use date assessed: 08/24/24 Fall risk assessment: No Falls in past year Last assessed Fall Risk: 08/24/24 Dental Screening Dental Screen Date: 01/04/24 [facility] Medical History COVID-19 vaccine series completed Class 2 severe obesity with body mass index (BMI) of 35 to 39.9 with serious comorbidity Allergic rhinitis Acquired hypothyroidism Surgical History (Updated 08/24/24 @ 14:22 by Richard Amin MD) History of colonoscopy with polypectomy (~08/04/21) History of hand surgery History of rotator cuff surgery Family History Mother No problems noted. Father No problems noted. Brother No problems noted. Social History Housing: House Housing Other:: and condo Alcohol intake: current Alcohol intake frequency: holidays/special occasions only Patient Tobacco Use Status: Never used Tobacco e-Cigarette/Vaping Use: Never Used Second Hand Smoke Exposure: No service: No Current occupational status: retired Cognitive needs: No Hearing needs: No Vision needs: No Questionnaire Thrive Questionnaire Date Thrive assessed: 10/21/23 JESSICA-7 AMB Questionnaire JESSICA-7 Date JESSICA - 7 assessed: 10/21/23 Source: Developed by Drs. Gerson Sabillon, Hailee Spencer, Jeffy Loco and colleagues, with an educational melani from [employer]. Physical exam (Primary Care) Vital Signs: Last Vital Signs Pulse 80 08/24/24 13:59 BP 130/70 08/24/24 13:59 Pulse Ox 97 08/24/24 13:59 Oxygen Delivery Method Room Air 08/24/24 13:59 BMI result Body Mass Index 36.7 Tobacco/Smoking Status: Tobacco use Status Tobacco use date assessed 08/24/24 08/24/24 14:04 Patient Tobacco Use Status Never used Tobacco 08/24/24 14:04 e-Cigarette/Vaping Use Never Used 08/24/24 14:04 Thrive Assessment: Date of Thrive Assessment Date Thrive assessed 10/21/23 08/24/24 14:04 Coding Level of Care Code Est Pt Level 4 (56133) Complex EM visit Add On G2211 Diagnoses Acquired hypothyroidism E03.9 Assessment & Plan Assessment & Plan (1) Acquired hypothyroidism: Code(s): E03.9 - Hypothyroidism, unspecified Category: Medical Plan: Thyroid medication dosage adjusted. Plan History of Present Illness The patient is a 69-year-old female presenting with hypothyroidism. She recently visited her magnetic tape typewriter operator at [facility] and there was an adjustment in her levothyroxine dosage from 0.125 mg to 112 mcg. This change is meant to last for six weeks, after which she will undergo further laboratory work to reassess her thyroid levels and make any necessary fine-tuning of the medication. The patient reports that she has been on levothyroxine since 1985 and has not undergone any bone density test to assess for osteoporosis, despite long-term thyroid hormone therapy which may influence bone health. She will see her magnetic tape typewriter operator again in six months unless her lab results necessitate earlier follow-up. Social History - The patient purchased a condo on [address] and is currently managing three homes, including one in [place] which she plans to sell. - The patient jokes about being part of a weight loss group and expresses mild embarrassment about participation. - The patient describes herself as getting older and making lifestyle adjustments accordingly. Review of Systems - Endocrine: Reports jumpiness, sleepiness, long-term use of levothyroxine. - Musculoskeletal: Denies previous bone density testing despite concerns about osteoporosis. - General: Denies any flu or COVID-like symptoms; confirms receiving influenza and shingles vaccinations. Physical Exam General: Appearance normal, both eyes and all related structures Nutritional Appearance: Well nourished Orientation/consciousness: Patient oriented x3 Limitations: No limitations Head: Normal to inspection Neck: No nodules, very small hole, shrinking Chest: Normal palpation of entire chest wall Respiratory: Normal respiratory effort Neurology: Patient oriented x3 Results Plan - Adjust levothyroxine dosage to 112 mcg for six weeks, followed by laboratory evaluation. - Order and schedule a bone density scan to assess for osteoporosis. - Continue to monitor thyroid function and adjust medication as needed based on upcoming lab work. - Plan follow-up after six months with an magnetic tape typewriter operator unless lab results indicate otherwise. Patient was informed and verbally consented to the use of an ambient scribe for clinic note documentation during this visit. Discussion Notes I discussed with the patient the change in her levothyroxine dosage and the plan for re-evaluation with lab tests after six weeks. The importance of monitoring thyroid function was emphasized, and I assured her that the dosage would be adjusted as needed to optimize her thyroid health. Additionally, we discussed her long-term use of levothyroxine and the associated risk of bone density reduction. Therefore, a bone density scan was recommended to screen for osteoporosis as a precautionary measure. I encouraged her openness about health-related concerns, including any lifestyle modifications impacting her overall well-being. Patient Instructions - Take new levothyroxine dosage as prescribed for the next six weeks. - Follow up with lab tests as discussed to monitor thyroid levels. - Attend the scheduled bone density scan. - Continue to keep track of any symptoms and report any significant changes. - Maintain a balanced lifestyle considering her current housing transitions. Orders: Orders XR DEXA axial skeleton Today M81.0 - Age-related osteoporosis without current pathological fracture
--- OUTSIDE RECORDS SUMMARY | 2024-08-24 13:58 | XMS_ITS | Patient Health Record ---
Author Organization [facility] Address [address] [place] [address] Care Team Providers Care Match Up Worker Name Role Phone CHERISE AYON Primary Care Provider Gerson Schneider Unavailable [phone] ALLERGIES No Known Allergies REASON FOR REFERRAL [...] history of colorectal cancer (Z80.0) Active confirmed 1120425980473 Problem Encounter for screening for malignant neoplasm of colon (Z12.11) Active confirmed 571971854 Problem Preprocedural examination (Z01.818) Active confirmed 523778507580858 Problem Diverticulosis of large intestine without perforation or abscess without bleeding (K57.30) Active confirmed Diverticul ar disease of colon (522484325) PLAN OF TREATMENT Pending Test Test Name Order Date Pathology 08/04/2021 Future Test Test Name Order Date COLONOSCOPY 07/15/2021 Insurance Providers Payer Name Payer Address Payer Phone Subscriber Number Group Number Insured Name Patient Relationship to Insured Coverage Start Date Coverage End Date [facility] [address] [place], [place] [id number] JULIANNE ROQUE Self - patient is the insured MEDICAL (GENERAL) HISTORY Medical History History ICD Code Seasonal allergies Denies [place],DM,CVA,Lung disease,renal dise ase Acne rosacea She describes 4 previous col onoscopies at age 37, 42, 47, and 54. She reported these were all negative other than a hyperplastic polyp removed at the most recent colonoscopy in 2011. 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 rotator cuff surgery
[2024-08-24 13:59] VITALS: BP 130/70; PULSE 80; O2SAT 97; BMI 36.7
== END 2024-08-24 14:38 | disposition home or self-care (01) ==
PROVIDERS: PCP Internal Medicine; Visit Provider Internal Medicine
DX: E03.9 Hypothyroidism, unspecified (principal)

== ENCOUNTER → 2024-08-24 13:55 | Outpatient (BNVA) | payer MEDICARE, BC, SELFPAY | PROVIDERS: PCP Internal Medicine; Visit Provider Internal Medicine | DX: E03.9 Hypothyroidism, unspecified (principal) | CPT/HCPCS: 99212 ==

== ENCOUNTER 2024-10-04 10:29 | Outpatient (REF) | payer MEDICARE, BC, SELFPAY ==
--- NOTE | ~2024-10-04 | MM_ITS ---
EXAMINATION: DXA BONE DENSITY AXIAL HISTORY: Estrogen deficiency TECHNIQUE: Phone Warrior Dual energy absorptiometry (DEXA) of the lumbar spine, total left hip, and femoral neck was performed. COMPARISON: There are no prior studies for comparison. FINDINGS: The bone mineral density of the lumbar spine is 1.425 with a T-score of 1.9, and a Z-score of 2.3. The bone mineral density of the left total hip is 1.235 with a T-score of 1.8, and a Z-score of 2.3. The bone mineral density of the left femoral neck is 1.023 with a T-score of -0.1, and a Z-score of 0.7. MM/XR DEXA axial skeleton IMPRESSION: Based on bone mineral density, and according to World Health Organization (WHO) criteria, the diagnosis is consistent with normal bone mineral density. All bone density values are in grams per centimeter squared (g/cm2). Statistically, 68% of repeat scans fall within 1 SD (+/- 0.010 g/cm2 for AP spine L1-L4) and 1 SD (+/- 0.012 g/cm2 for femur total) FRAX is a trademark of the [employer] [place] for Metabolic Bone Disease, a World Health Organization (WHO) Collaborating Center. Electronically signed by: Gerson Butler MD 10/09/2024 11:45 AM [facility]
--- OUTSIDE RECORDS SUMMARY | 2024-10-04 12:35 | XMS_ITS | Patient Health Record ---
Author Organization [facility] Address [address] [place] [address] Care Team Providers Care Family Consultant Name Role Phone CHERISE AYON Primary Care Provider Gerson Schneider Unavailable [phone] ALLERGIES No Known Allergies REASON FOR REFERRAL [...] history of colorectal cancer (Z80.0) Active confirmed [id number] Problem Encounter for screening for malignant neoplasm of colon (Z12.11) Active confirmed 417370732 Problem Preprocedural examination (Z01.818) Active confirmed 856721932267364 Problem Diverticulosis of large intestine without perforation or abscess without bleeding (K57.30) Active confirmed Diverticul ar disease of colon (323985033) PLAN OF TREATMENT Pending Test Test Name Order Date Pathology 08/04/2021 Future Test Test Name Order Date COLONOSCOPY 07/15/2021 Insurance Providers Payer Name Payer Address Payer Phone Subscriber Number Group Number Insured Name Patient Relationship to Insured Coverage Start Date Coverage End Date [facility] [address] [place], [place] [id number] JULIANNE ROQUE Self - patient is the [...]
== END 2024-10-04 10:30 | disposition home or self-care (01) ==
LOC: HO.MAMMO 10:29
PROVIDERS: PCP Internal Medicine; Visit Provider Internal Medicine
DX: Z12.31 Encounter for screening mammogram for malignant neoplasm of breast (principal); M81.0 Age-related osteoporosis without current pathological fracture
CPT/HCPCS: 77063; 77067; 77080

== ENCOUNTER → 2024-10-04 11:00 | Outpatient (BNV) | payer MEDICARE, BC, SELFPAY | PROVIDERS: PCP Internal Medicine; Visit Provider Radiology Diagnostic Radiology | DX: M81.0 Age-related osteoporosis without current pathological fracture (principal) | CPT/HCPCS: 77063; 77067; 77080 ==

== ENCOUNTER 2025-08-09 14:31 | Outpatient (AMB) | payer MEDICARE, BC, SELFPAY ==
--- NOTE | 2025-08-09 14:46 | MHC.PC.OV ---
Vital Signs 08/09/25 14:48 Height 5 ft 10 in Weight 266 lb 4 oz BMI 38.2 BP 140/84 H Blood Pressure Location Lt brachial Position Sitting Pulse 80 Pulse Source Pulse Oximeter Temp 96.9 F Temp Source Temporal Artery Scan Pulse Oximetry (%) 96 Oxygen Delivery Method Room Air Intake Visit Reasons: 6 month follow up, Intake Note: Patient is here to follow up on Hypothyroidism Metal Hanging Helper Required: No Internet Programmer: Not Required per policy Accompanied by: Self / Same As Patient Allergies No Known Allergies Allergy (Verified 08/09/25 14:47) Medication List - Last Reconciled 08/21/25 by Richard Amin MD levothyroxine 112 mcg PO DAILY montelukast 10 mg PO DAILY nystatin-triamcinolone 100,000-0.1 unit/g-% 1 appl topical DAILY Tobacco use date assessed: 08/09/25 Fall risk assessment: No Falls in past year Last assessed Fall Risk: 08/09/25 Dental Screening Dental Screen Date: 08/09/25 Did you have a dental visit in the last 12 months?: Yes Did you have a dental problem in the last 6 months where you did not have access to dental care?: No Was dental information given to patient?: Patient has dentist HPI HPI Comments History of Present Illness Details History of Present Illness - The patient is a 70 year old female presenting for follow-up of her hypothyroidism and evaluation of new-onset bilateral lower extremity edema. - The patient reports that over the summer her feet and legs became severely swollen, which she attributes to her thyroid function. - Her cryptographic machine operator, Dr. Gray, was on personal leave, so she was managed via patient portal by a colleague, Dr. Mike Parker. - Lab work at that time showed her TSH had risen to 5. - Dr. Parker increased her levothyroxine to 112 mcg, with a direction to take the dose twice on Sundays. - Repeat testing six weeks later showed the TSH had decreased to 3.5, which the patient feels is still too high for her. - She believes her TSH instability may be due to receiving her generic thyroid medication from three different manufacturers and has asked her pharmacy to order from a consistent source. - Associated symptoms include persistent leg swelling, fatigue, constipation requiring Colace, and a 20-pound weight gain despite no changes to her diet. - The patient had a cortisone injection for knee pain in May, which she relates to the recent weight gain. - She is due for her 5-year follow-up colonoscopy next year. Social History - Diet: The patient follows the Weight Watchers program and tracks her intake. - Nutrition: She reports eating a lot of fruits and vegetables, cooks her own meals, and feels her diet is very healthy and has remained consistent. - Exercise: The patient reports she is very active, walks a lot while running errands, but acknowledges she has not been doing structured workouts like using a treadmill or elliptical. - Functional Status: Her ability to perform a lot of exercise is limited by knee pain that flared up with recent weight gain. Results - Labs - Recent TSH was 5. - TSH 6 weeks after a medication adjustment was 3.5. - Renal function panel was normal. [facility] Medical History COVID-19 vaccine series completed Class 2 severe obesity with body mass index (BMI) of 35 to 39.9 with serious comorbidity Allergic rhinitis Acquired hypothyroidism Surgical History History of colonoscopy with polypectomy (~08/04/21) History of hand surgery History of rotator cuff surgery Family History Mother No problems noted. Father No problems noted. Brother No problems noted. Social History Housing: House Housing Other:: and condo Alcohol intake: current Alcohol intake frequency: holidays/special occasions only Patient Tobacco Use Status: Never used Tobacco e-Cigarette/Vaping Use: Never Used Second Hand Smoke Exposure: No service: No Current occupational status: retired Cognitive needs: No Hearing needs: No Vision needs: No Questionnaire PHQ-9 Over the last 2 weeks, how often have you been bothered by any of the following problems? 1. Little interest or pleasure in doing things: not at all 2. Feeling down, depressed, or hopeless: not at all 3. Trouble falling or staying asleep, or sleeping too much: not at all 4. Feeling tired or having little energy: not at all 5. Poor appetite or overeating: not at all 6. Feeling bad about yourself - or that you are a failure or have let yourself or your family down: not at all 7. Trouble concentrating on things, such as reading the newspaper or watching television: not at all 8. Moving or speaking so slowly that other people could have noticed. Or the opposite - being so fidgety or restless that you have been moving around a lot more than usual: not at all 9. Thoughts that you would be better off or of hurting yourself in some way: not at all Total score: 0 Depression Screening Interpretation: Negative Depression Screening Done: Yes Source: Developed by Drs. Gerson Sabillon, Hailee Spencer, Jeffy Loco and colleagues, with an educational melani from [employer] Thrive Questionnaire Date Thrive assessed: 08/09/25 I am a: Patient What is your living situation today?: I have a steady place to live Within the past 12 months, did the food you bought not last and you didn't have the money to get more?: Never true Within the past 12 months, did you worry whether your food would run out before you got money to buy more?: Never true Do you have trouble paying for medicines?: No Do you have trouble getting transportation to medical appointments?: No Do you have trouble paying your heating and electricity bill?: No Do you have trouble taking care of your child, family member or friend?: No Do you have trouble with day-to-day activities such as bathing, preparing meals, shopping, managing finances, etc.?: No Are you currently unemployed and looking for a job?: No Are you interested in more education?: No Please select the resources that you would like help with: None Currently or been in a relationship where the following occur: No concerns reported THRIVE Score: 0 AUDIT C Alcohol Use Questionnaire (AUDIT-C) 1. How often do you have a drink containing alcohol?: Monthly or less 2. How many drinks containing alcohol do you have on a typical day when you are drinking?: 1 or 2 Total Score: 1 JESSICA-7 AMB Questionnaire JESSICA-7 Date JESSICA - 7 assessed: 08/09/25 Feeling nervous, anxious, or on edge: 0 = Not at all Not being able to stop or control worryin = Not at all Worrying too much about different things: 0 = Not at all Trouble relaxin = Not at all Being so restless that it is hard to sit still: 0 = Not at all Becoming easily annoyed or irritable: 0 = Not at all Feeling afraid as if something awful might happen: 0 = Not at all Total JESSICA-7 score (0-4 normal; 5-9 mild; 10-14 moderate; 15-21 severe): 0 Source: Developed by Drs. Gerson Sabillon, Hailee Spencer, Jeffy Loco and colleagues, with an educational melani from [employer] Review of Systems Narrative Review of Systems - General: Reports fatigue and a 20-pound weight gain. - Cardiovascular: Reports bilateral lower extremity edema, describing her legs as tight. - Gastrointestinal: Reports constipation, requiring medication. - Musculoskeletal: Reports knee pain that required a cortisone injection. Physical exam (Primary Care) Vital Signs: Last Vital Signs Temp 96.9 F 08/09/25 14:48 Pulse 80 08/09/25 14:48 BP 140/84 H 08/09/25 14:48 Pulse Ox 96 08/09/25 14:48 Oxygen Delivery Method Room Air 08/09/25 14:48 BMI result Body Mass Index 38.2 Tobacco/Smoking Status: Tobacco use Status Tobacco use date assessed 08/09/25 08/09/25 14:53 Patient Tobacco Use Status Never used Tobacco 08/09/25 14:46 e-Cigarette/Vaping Use Never Used 08/09/25 14:46 PHQ-9: PHQ-9 Score PHQ-9: Total score 0 08/09/25 15:17 Depression Screening Interpretation: Negative Thrive Assessment: Date of Thrive Assessment Date Thrive assessed 08/09/25 08/09/25 14:46 Currently or been in a relationship where the following occur: No concerns reported Narrative Physical Exam General: Appearance normal, both eyes and all related structures Nutritional Appearance: Well nourished Orientation/consciousness: Patient oriented x3 Limitations: Swollen legs and feet, worse lungs, knee issues Head: Normal to inspection Neck: Normal visual inspection Chest: Normal palpation of entire chest wall Respiratory: Worse lungs Neurology: Patient oriented x3 Coding Level of Care Code Est Pt Level 4 (38821) Add On Problem Visit Only Diagnoses Acquired hypothyroidism E03.9 Class 2 severe obesity with body mass index (BMI) of 35 to 39.9 with serious comorbidity E66.01 Assessment & Plan Assessment & Plan (1) Acquired hypothyroidism: Code(s): E03.9 - Hypothyroidism, unspecified Category: Medical Plan: History of Present Illness - The patient is a 70 year old female presenting for follow-up of her hypothyroidism and evaluation of new-onset bilateral lower extremity edema. - The patient reports that over the summer her feet and legs became severely swollen, which she attributes to her thyroid function. - Her cryptographic machine operator, Dr. Gray, was on personal leave, so she was managed via patient portal by a colleague, Dr. Mike Parker. - Lab work at that time showed her TSH had risen to 5. - Dr. Parker increased her levothyroxine to 112 mcg, with a direction to take the dose twice on Sundays. - Repeat testing six weeks later showed the TSH had decreased to 3.5, which the patient feels is still too high for her. - She believes her TSH instability may be due to receiving her generic thyroid medication from three different manufacturers and has asked her pharmacy to order from a consistent source. - Associated symptoms include persistent leg swelling, fatigue, constipation requiring Colace, and a 20-pound weight gain despite no changes to her diet. - The patient had a cortisone injection for knee pain in May, which she relates to the recent weight gain. - She is due for her 5-year follow-up colonoscopy next year. Social History - Diet: The patient follows the Weight Watchers program and tracks her intake. - Nutrition: She reports eating a lot of fruits and vegetables, cooks her own meals, and feels her diet is very healthy and has remained consistent. - Exercise: The patient reports she is very active, walks a lot while running errands, but acknowledges she has not been doing structured workouts like using a treadmill or elliptical. - Functional Status: Her ability to perform a lot of exercise is limited by knee pain that flared up with recent weight gain. Review of Systems - General: Reports fatigue and a 20-pound weight gain. - Cardiovascular: Reports bilateral lower extremity edema, describing her legs as tight. - Gastrointestinal: Reports constipation, requiring medication. - Musculoskeletal: Reports knee pain that required a cortisone injection. Physical Exam General: Appearance normal, both eyes and all related structures Nutritional Appearance: Well nourished Orientation/consciousness: Patient oriented x3 Limitations: Swollen legs and feet, worse lungs, knee issues Head: Normal to inspection Neck: Normal visual inspection Chest: Normal palpation of entire chest wall Respiratory: Worse lungs Neurology: Patient oriented x3 Results - Labs - Recent TSH was 5. - TSH 6 weeks after a medication adjustment was 3.5. - Renal function panel was normal. Plan - Laboratory studies, including a TSH level, will be ordered for the patient to complete. - The patient will follow up with her cryptographic machine operator, Dr. Gray, on September 26 to review results and further manage her hypothyroidism. - The patient has been counseled to bring the new lab results to her endocrinology appointment. - A potential switch from generic levothyroxine to brand-name Synthroid was discussed as a possible next step by her endocrinology team if symptoms persist. Discussion Notes I reviewed the patient's recent history of hypothyroidism management, including her symptoms of edema, fatigue, and weight gain, along with TSH fluctuations. We discussed her TSH level of 3.5, which she feels is suboptimally high, and her theory regarding the impact of changing generic levothyroxine manufacturers. I informed her that I will order new bloodwork, including a TSH, so she has updated results for her upcoming endocrinology appointment on September 26. We acknowledged her cryptographic machine operator's prior consideration of switching to brand-name Synthroid as a potential next step. Patient Instructions - Please go to the lab to have your blood drawn for the tests we ordered. - Continue taking your thyroid medication as prescribed. - Keep your scheduled appointment with your cryptographic machine operator, Dr. Gray, on September 26. - Make sure to bring your new lab results with you to your endocrinology visit. - Remember we discussed incorporating exercises that are easy on your knees, such as using an elliptical machine. (2) Class 2 severe obesity with body mass index (BMI) of 35 to 39.9 with serious comorbidity: Code(s): E66.01 - Morbid (severe) obesity due to excess calories Category: Medical Plan: Counselling on diet and exercise done. Plan Plan - Laboratory studies, including a TSH level, will be ordered for the patient to complete. - The patient will follow up with her cryptographic machine operator, Dr. Gray, on September 26 to review results and further manage her hypothyroidism. - The patient has been counseled to bring the new lab results to her endocrinology appointment. - A potential switch from generic levothyroxine to brand-name Synthroid was discussed as a possible next step by her endocrinology team if symptoms persist. Discussion Notes I reviewed the patient's recent history of hypothyroidism management, including her symptoms of edema, fatigue, and weight gain, along with TSH fluctuations. We discussed her TSH level of 3.5, which she feels is suboptimally high, and her theory regarding the impact of changing generic levothyroxine manufacturers. I informed her that I will order new bloodwork, including a TSH, so she has updated results for her upcoming endocrinology appointment on September 26. We acknowledged her cryptographic machine operator's prior consideration of switching to brand-name Synthroid as a potential next step. Patient Instructions - Please go to the lab to have your blood drawn for the tests we ordered. - Continue taking your thyroid medication as prescribed. - Keep your scheduled appointment with your cryptographic machine operator, Dr. Gray, on September 26. - Make sure to bring your new lab results with you to your endocrinology visit. - Remember we discussed incorporating exercises that are easy on your knees, such as using an elliptical machine.
[2025-08-09 14:48] VITALS: BP 140/84; PULSE 80; TEMP 36.1; O2SAT 96; BMI 38.2
== END 2025-08-09 15:11 | disposition home or self-care (01) ==
LOC: HO.HMCH 14:31
PROVIDERS: PCP Internal Medicine; Visit Provider Internal Medicine
DX: E03.9 Hypothyroidism, unspecified (principal); E66.01 Morbid (severe) obesity due to excess calories; Z68.38 Body mass index [BMI] 38.0-38.9, adult

== ENCOUNTER → 2025-08-09 14:31 | Outpatient (BNVA) | payer MEDICARE, BC, SELFPAY | PROVIDERS: PCP Internal Medicine; Visit Provider Internal Medicine | DX: R60.0 Localized edema (principal); E03.9 Hypothyroidism, unspecified; E66.01 Morbid (severe) obesity due to excess calories; R53.83 Other fatigue; Z13.31 Encounter for screening for depression; Z13.39 Encounter for screening examination for other mental health and behavioral disorders | CPT/HCPCS: 96127; 99212 ==

== ENCOUNTER 2025-08-29 11:50 | Outpatient (REF) | payer MEDICARE, BC, SELFPAY ==
--- OUTSIDE RECORDS SUMMARY | 2025-08-29 11:52 | XMS_ITS ---
Author Name [facility] Organization Unknown History of Medication Use Medication Directions Dispensed Refills Start Date End Date Stat us montelukast (Singulair) 10 MG tablet Take 1 tablet (10 mg) by mouth daily. 02/16/2022 active doxycycline (Oracea) [address] capsule Take one pill with dinner 09/24/2015 active levothyroxine (Synthroid) 100 MCG/5ML solution Take 1 tablet by mouth daily. 06/30/2004 active Allergies Allergen Reaction Severity Comment Documented Date Source Statu s POLLEN EXTRACT 04/02/2022 ENS_MFA active Problems Problem Status Onset Date Problem Type Date of Resoluti on Source PVD (posterior vitreous detachment), both eyes active 2022-01-22 ProblemAct ENS_MFA Combined forms of age-related cataract of right eye active EncounterDiagnosisAct ENS_MF A Epiretinal membrane (ERM) of left eye active 2022-01-22 ProblemAct ENS_MFA Severe myopia of both eyes active 2022-01-22 ProblemAct ENS_MFA Cataract, nuclear sclerotic, both eyes active 2022-01-22 ProblemAct ENS_MFA Encounters Encounter Type Encounter Reason Primary Diagnosis Location Date Ambulatory MFA COVID RPM 07/13/2024 Ambulatory MFA COVID RPM 08/18/2023 Ambulatory MFA COVID RPM 07/12/2023 Ambulatory [facility], left eye MFA COVID RPM 08/18/2022 Ambulatory Cataract extract ion status, left eye MFA COVID RPM 04/30/2022 Ambulatory Cataract extract ion status, left eye MFA COVID RPM 04/02/2022 Ambulatory MFA COVID RPM 03/26/2022 Ambulatory MFA COVID RPM 03/25/2022 Ambulatory [facility] 03/25/2022 Ambulatory MFA COVID RPM 03/02/2022 Ambulatory MFA COVID RPM 02/17/2022 Ambulatory MFA COVID RPM 02/16/2022 Ambulatory MFA COVID RPM 01/22/2022 Care Team Organization Name Specialty Phone Email Start Date End Da te [employer] 09/07/2023 [facility] 08/13/2023 [employer] DAYDAY CASTRO [email or web address] 08/13/2022 [facility] 03/25/2022
--- OUTSIDE RECORDS SUMMARY | 2025-08-29 11:53 | XMS_ITS | Patient Health Record ---
Author Organization [facility] Address [address] [place] [address] Care Team Providers Care Crop Picker Name Role Phone NANY CHERISE Primary Care Provider Gerson Schneider Unavailable [phone] Allergies No Known Allergies Reason For Referral No Information Medications Medication SIG (Take, Route, Frequency, Duration) Notes Start Date End Date Status Levothyroxine Sodium 125 MCG Tablet 1 tablet in the morning on an empty stomach Orally Once a day; Duration: 30 day(s) Active Singulair 10 MG Tablet 1 tablet Orally O nce a day; Duration: 30 day(s) Active Immunizations Vaccine Route Administration Date Status Comme nts Influenza Unknown 07/08/2021 Administered Social History Tobacco Use: Social History Observation Description Date Details (start date - stop date) Never Smoker NA - NA Social History Drugs/Alcohol: Social Info Question Answer Notes Alcohol Screen Did you have a drink containing alcohol in the past year? Yes How often did you have a drink containing alcohol in the past year? 2 to 3 times a week (3 points) How many drinks did you have on a typical day when you were drinking in the past year? 1 or 2 drinks (0 point) How often did you have 6 or more drinks on one occasion in the past year? 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 Nonsmoker; no sig alcohol Problems Problem Type SNOMED Code ICD Code Onset Dates Problem Status W/U Status Risk Notes Problem Screening for malignant neoplasm of colon (023792036) Encounter for screening for malignant neoplasm of colon (Z12.11) Active confirmed Problem Diverticular disease of colon (845711651) Diverticulosis of large intestine without perforation or abscess without bleeding (K57.30) Active confirmed Problem Preprocedural examination (670228142448950) Preprocedural examination (Z01.818) Active confirmed Problem Family history of colorectal cancer (5193998581347) Family history of colorectal cancer (Z80.0) Active confirmed Plan Of Treatment Pending Test Test Name Order Date Pathology 08/04/2021 Future Test Test Name Order Date COLONOSCOPY 07/15/2021 Insurance Providers Payer Name Payer Address Payer Phone Subscriber Number Group Number Insured Name Patient Relationship to Insured Coverage Start Date Coverage End Date [facility] [address] [place], [place] [id number] JULIANNE ROQUE Self - patient is the insured Medical (General) History Medical History History ICD Code Seasonal allergies Denies MD,DM,CVA,Lung disease,renal dise ase Acne rosacea She describes 4 previous col onoscopies at age 37, 42, 47, and 54. She reported these were all negative other than a hyperplastic polyp removed at the most recent colonoscopy in 2011. 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 rotator cuff surgery
--- OUTSIDE RECORDS SUMMARY | 2025-08-29 11:53 | XMS_ITS | Patient Health Record ---
Author Organization [facility] Address [address] [facility] [address] [place] [address] Support Name Relationship Address Phone JULIANNE ROQUE Guarantor Unknown Reason For Referral No Information Plan Of Treatment No Information Insurance Providers Payer Name Payer Address Payer Phone Subscriber Number Group Number Insured Name Patient Relationship to Insured Coverage Start Date Coverage End Date [employer] [address] [place] [phone] [id number] JULIANNE ROQUE Self - patient is the insured 6
[2025-08-29 12:22] LABS: Appearance Urine Clear; Glucose Urine UA Negative (Negative); PH 7.5 (5.0-9.0); Specific Gravity - Urine 1.015 (1.005-1.025)
[2025-08-29 12:26] LABS: Hematocrit 40.2 % (37.0-47.0); Hemoglobin 12.8 g/dl (12.0-16.0); Mean Corpuscular HGB Conc 31.8 g/dl (31.0-35.0); Mean Corpuscular Hemoglobin 30.2 pg (27.0-33.0); Mean Corpuscular Volume 94.8 fL (80.0-98.0); NRBC Abs Auto 0.000 X10*3/uL (0.0-0.012); NRBC Pct Auto 0.0 /100WBC (0.0-0.2); Platelet Count 227 X10*3/uL (160-400); Red Blood Count 4.24 X10*6/uL (4.20-5.50); White Blood Count 5.4 X10*3/uL (4.8-10.8)
[2025-08-29 13:02] LABS: Alanine Aminotransferase 19 U/L (0-31); Albumin Level 4.2 g/dL (3.5-5.0); Alkaline Phosphatase 63 U/L (39-117); Anion Gap 11 (12-20); Aspartate Amino Transferase 26 U/L (5-31); Blood Urea Nitrogen 21 mg/dL (9-16); Calcium 9.4 mg/dL (8.4-10.2); Carbon Dioxide 29 mmol/L (22-29); Chloride 105 mmol/L (96-108); Cholesterol 194 mg/dL (<200); Estimated Glomerular Filt Rate > 60; HDL Cholesterol 68 mg/dL (>40); Potassium 4.3 mmol/L (3.3-5.1); Sodium 141 mmol/L (135-145); Total Protein 6.6 g/dL (6.5-8.0); Triglycerides 120 mg/dL (<150)
[2025-08-29 13:12] LABS: Free T4 (Free Thyroxine) 1.92 ng/dL (0.71-1.85); Thyroid Stimulating Hormone 2.72 uIU/mL (0.32-4.0)
== END 2025-08-29 11:51 | disposition home or self-care (01) ==
LOC: HO.LAB 11:50
PROVIDERS: PCP Internal Medicine; Visit Provider Internal Medicine
DX: E03.9 Hypothyroidism, unspecified (principal)
CPT/HCPCS: 36415; 80048; 80061; 80076; 81003; 84439; 84443; 85027